=== PATIENT | male | born 1990 | race Caucasian/White ===

== ENCOUNTER → 2018-12-29 16:47 | Outpatient (CLI) | payer BC, SELFPAY ==
[2018-12-29 17:33] LABS: Absolute Lymphocyte Count 2.25 X10^3/ul (0.83-4.51); Absolute Neutrophil Count 4.4 X10^3/uL (2.0-7.7); Basophil# 0.03 X10^3/uL; Basophil% 0.4 % (0-1); Eosinophil# 0.14 X10^3/uL; Eosinophils% 1.9 % (0-5); Hematocrit 47.3 % (40-54); Hemoglobin 15.7 g/dl (13.0-16.5); Lymphocyte # 2.25 X10^3/ul (4.0); Lymphocyte % 30.9 % (19-41); Mean Corp Hgb Conc 33.2 g/gl (32-36); Mean Corpuscular Hgb 26.9 pg (27.0-32.0); Mean Corpuscular Volume 81.1 fL (80-94); Mean Platelet Vol. 11.3 fl (6.2-12.0); Monocyte# 0.42 X10^3/uL; Monocyte% 5.8 % (0-10); Neutrophil # 4.44 X10^3/uL (2.7-7.7); Neutrophil % 60.9 % (47-70); Platelet Count 218 K/mm3 (150-450); RBC Distribution Width CV 13.5 % (11.6-14.6); RBC Distribution Width SD 39.8 fl (35.1-43.9); Red Blood Count 5.83 M/mm3 (4.6-6.2); White Blood Count 7.3 K/mm3 (4.4-11.0)
[2018-12-29 17:36] LABS: POSITIVE COUNT NO; POSITIVE DIFFERENTIAL NO; POSITIVE MORPHOLOGY NO
[2018-12-29 18:31] LABS: ALB/GLOB Ratio 1.3 RATIO (0.9-2.4); AST(SGOT) 22 U/L (15-37); Alanine Aminotransfer ALT/SGPT 56 U/L (16-61); Albumin, Serum 4.4 g/dL (3.2-5.0); Alkaline Phosphatase 49 U/L (45-117); Anion Gap 8 (5-15); BUN 21 mg/dL (7-18); Calcium,Total 8.8 mg/dL (8.5-10.1); Chloride 106 mmol/L (98-107); Cholesterol 223 mg/dL (200); EST Glomerular Filtration Rate 96 mL/min (>60); Est Glom Filt Rate - Afr Amer 116 mL/min (>60); Globulin 3.5 g/dL (2.2-4.2); Glucose 91 mg/dL (74-106); High Density Lipoprotein 37 mg/dL; Protein, Total 7.9 g/dL (6.4-8.2); Sodium Level 139 mmol/L (136-145); Thyroid Stim Hormone (TSH) 0.95 uIU/mL (0.358-3.74); Triglycerides 336 mg/dL; Very Low Density Lipoprotein 67 mg/dL (5-40)
[2018-12-29 18:35] LABS: Vitamin B12 387 pg/mL (211-911); Vitamin D,25 Hydroxy 14.3 ng/mL (29.95-100.01)
== END ==
PROVIDERS: Family Provider Family Medicine; PCP Family Medicine; Referring Provider Family Medicine; Visit Provider Family Medicine
DX: R53.83 Other fatigue (principal); E66.9 Obesity, unspecified
CPT/HCPCS: 36415; 80053; 80061; 82306; 82607; 84443; 85025

== ENCOUNTER 2019-05-22 03:24 | Emergency (ER) | payer BC, SELFPAY ==
[2019-05-22 03:24] VITALS: BP 164/86; PULSE 71; RESP 16; TEMP 36.4; O2SAT 97; BMI 38.9
--- NOTE | 2019-05-22 03:28 | RAD_ITS ---
HISTORY: Injury. EXAMINATION/TECHNIQUE: XR Ribs Unilateral W/ PA Chest Min 3 Views: Right. COMPARISON: None FINDINGS: LINES/DEVICES: None. LUNGS: No consolidation, edema or effusion. No pneumothorax. MEDIASTINUM AND CARDIOVASCULAR STRUCTURES: Cardiac silhouette not enlarged. Central airways and mediastinal contour are unremarkable. RIBS AND OSSEOUS STRUCTURES: Unremarkable. No evidence of displaced rib fractures. RAD/Ribs Uni Min 3V w/PA Chest IMPRESSION: Negative chest and ribs series. at 0431 Reported and signed by: Mitchell Hamm MD Electronically Signed: Mitchell Hamm, at 4:30 EDT Tel , Service support ,
--- NOTE | 2019-05-22 03:29 | ED.VIS.GEN ---
History of Present Illness Chief Complaint: Chest Other Informant: Patient Onset: Weeks - 1 Narrative: Evaluation of rib injury occurring a week ago. Playing basketball came down onto his shoulder. Pain anterior front ribs. No dyspnea. No medications taken. See pain is worsening with no new injuries. Denies any allergies, no history of gastric ulcers or kidney injury. Came for imaging. Prior similar symptoms: No Past Medical History - Allergies and Home Meds Allergies/Adverse Reactions: Allergies No Known Allergies Allergy (Verified 05/22/19 03:24) Primary Care Physician: Sukhjinder Lewis MD [Primary Care Provider] - Smoking Status: Never smoker Review of Systems General: Denies: Chills, Fever, Sweats Eyes: Denies: Visual changes - bilaterally, Diplopia ENT: Denies: Rhinorrhea, Sore throat Cardiovascular: Reports: - - Rib pain. Denies: Chest pain, Palpitations Respiratory: Denies: Dyspnea, Cough, Dyspnea on exertion Gastrointestinal: Denies: Abdominal pain, Nausea, Vomiting, Diarrhea, Melena, Hematochezia Genitourinary: Denies: Dysuria, Hematuria, Frequency Musculoskeletal: Denies: Back pain, Extremity Pain Skin: Denies: Rash, Wounds Neurological: Denies: Headache, Weakness, Numbness Physical Exam Vital Signs/Narrative: Vital Signs Temp Pulse Resp BP Pulse Ox 05/22/19 03:24 97.5 F L 71 16 164/86 H 97 Inital Vital Signs reviewed: Yes General: Well nourished, Well developed, No Acute Distress Head: Normocephalic, Atraumatic Eyes: Perrl, EOMI ENT: Moist mucous membranes, No rhinorrhea Neck: Supple, Nontender Cardiovascular: Regular rate, Regular rhythm, No murmurs Respiratory: No distress, CTA bilaterally, Chest tenderness, - - Symmetric breath sounds. Tender palpation anterior lower ribs with no crepitus or ecchymosis. Minimal lateral midline rib pain. No posterior pain. Abdomen: Soft, Nontender, Nondistended, Normal bowel sounds Back: Nontender, Normal Inspection Extremities: Nontender, No edema Skin: Normal color, No rash Neurological: Alert, Oriented x3, Cranial nerves II-XII grossly intact, Normal Strength, Normal Sensation Psychological: Normal affect, Normal Mood Diagnostic/Tx/Re-eval Clinical Impression(s) from Imaging Studies Ribs w/Chest X-Ray 05/22/19 03:28 IMPRESSION: Negative chest and ribs series. at 0431 Reported and signed by: Mitchell Hamm MD Electronically Signed: Mitchell Hamm, at 4:30 EDT Tel , Service support , - Medical Decision Making Vital signs stable, symmetric breath sounds. Patient agreed with ibuprofen, rib series obtained with no acute process. Discussed chest wall contusion with symptomatic treatment. Following up as an outpatient. All questions were answered. ED Disposition - Plan for ED Patient: Disposition: Home or Assisted Living Diagnosis: Chest wall contusion Instructions: Chest Wall Contusion Referrals: Sukhjinder Lewis MD [Primary Care Provider] - 5-7 Days Additional Instructions: Right rib series and chest were negative. Use ibuprofen 600 mg every 6 hours as needed for symptom control.
[2019-05-22] MEDS: Ibuprofen 600 MG Tablet PO (03:41)
[2019-05-22 04:49] VITALS: RESP 14
== END 2019-05-22 04:53 | disposition home or self-care (01) ==
PROVIDERS: Emergency Provider Emergency Medicine; Family Provider Family Medicine; PCP Family Medicine
DX: S20.211A Contusion of right front wall of thorax, initial encounter (principal); W19.XXXA Unspecified fall, initial encounter; Y93.67 Activity, basketball; Y92.9 Unspecified place or not applicable; Y99.9 Unspecified external cause status
CPT/HCPCS: 71101; 99283

== ENCOUNTER → 2019-10-20 10:41 | Outpatient (CLI) | payer BC, SELFPAY ==
[2019-10-20 12:26] LABS: Erythrocyte Sedimentation Rate 6 mm/hr (0-15)
[2019-10-20 12:28] LABS: Absolute Neutrophil Count 3.6 X10^3/uL (2.0-7.7); Basophil# 0.05 X10^3/uL; Basophil% 0.8 % (0-1); Eosinophil# 0.16 X10^3/uL; Eosinophils% 2.7 % (0-5); Hemoglobin 15.7 g/dL (13.0-16.5); Mean Corp Hgb Conc 34.1 g/dL (32-36); Mean Corpuscular Hgb 27.6 pg (27.0-32.0); Mean Corpuscular Volume 80.8 fL (80-94); Monocyte# 0.52 X10^3/uL; Monocyte% 8.8 % (0-10); NRBC Flagged by Analyzer 0 % (0-5); Neutrophil # 3.57 X10^3/uL (2.7-7.7); Neutrophil % 60.2 % (47-70); Platelet Count 211 K/mm3 (150-450); RBC Distribution Width CV 12.8 % (11.6-14.6); RBC Distribution Width SD 36.7 fl (35.1-43.9); Red Blood Count 5.69 M/mm3 (4.6-6.2); White Blood Count 5.9 K/mm3 (4.4-11.0)
[2019-10-20 13:18] LABS: ALB/GLOB Ratio 1.2 RATIO (0.9-2.4); AST(SGOT) 22 U/L (15-37); Alanine Aminotransfer ALT/SGPT 60 U/L (16-61); Albumin, Serum 4.2 g/dL (3.2-5.0); Alkaline Phosphatase 50 U/L (45-117); Anion Gap 5 (5-15); BUN 15 mg/dL (7-18); Chloride 108 mmol/L (98-107); Creatinine, Serum 1.15 mg/dL (0.70-1.30); EST Glomerular Filtration Rate 81 mL/min (>60); Est Glom Filt Rate - Afr Amer 98 mL/min (>60); Globulin 3.5 g/dL (2.2-4.2); Glucose 99 mg/dL (74-106); Potassium 3.9 mmol/L (3.5-5.1); Protein, Total 7.7 g/dL (6.4-8.2); Rheumatoid Factor < 10.0 IU/mL (<15); Sodium Level 141 mmol/L (136-145)
[2019-10-21 13:34] LABS: ANTINUCLEAR ANTIBODIES DIRECT Negative (Negative)
== END ==
PROVIDERS: Family Provider Family Medicine; PCP Family Medicine; Visit Provider Nurse Practitioner Family
DX: M79.10 Myalgia, unspecified site (principal); E55.9 Vitamin D deficiency, unspecified
CPT/HCPCS: 36415; 80053; 82306; 85025; 85652; 86038; 86141; 86431

== ENCOUNTER → 2020-05-04 12:03 | Outpatient (CLI) | payer BC, SELFPAY ==
[2020-01-03 12:41] VITALS: BMI 38.9
[2020-05-04 15:55] LABS: ALB/GLOB Ratio 1.1 RATIO (0.9-2.4); AST(SGOT) 25 U/L (15-37); Alanine Aminotransfer ALT/SGPT 64 U/L (16-61); Albumin, Serum 4.1 g/dL (3.2-5.0); Alkaline Phosphatase 51 U/L (45-117); Anion Gap 5 (5-15); BUN 19 mg/dL (7-18); BUN/Creat Ratio 17.1 RATIO (10-20); Calcium,Total 9.2 mg/dL (8.5-10.1); Chloride 107 mmol/L (98-107); Creatinine, Serum 1.11 mg/dL (0.70-1.30); EST Glomerular Filtration Rate 84 mL/min (>60); Est Glom Filt Rate - Afr Amer 102 mL/min (>60); Globulin 3.9 g/dL (2.2-4.2); Glucose 106 mg/dL (74-106); Sodium Level 139 mmol/L (136-145)
[2020-05-07 20:05] LABS: Endomysial Antibody IgA Negative (Negative)
[2020-05-08 00:40] LABS: Immunoglobulin A 95 mg/dL (90-386); t-Transglutaminase IgA <2 U/mL (0-3)
[2020-05-09 20:07] LABS: Beef <0.10 kU/L (Class 0); Corn <0.10 kU/L (Class 0); Egg, Whole 0.46 kU/L (Class I); Milk (Cow) 0.79 kU/L (Class II); Peanut <0.10 kU/L (Class 0); Pork <0.10 kU/L (Class 0); Soybean <0.10 kU/L (Class 0); Wheat 0.72 kU/L (Class II)
[2020-05-10 01:51] LABS: Chocolate <0.10 kU/L (Class 0)
== END ==
PROVIDERS: PCP Family Medicine; Referring Provider Family Medicine; Visit Provider Family Medicine
DX: R19.7 Diarrhea, unspecified (principal)
CPT/HCPCS: 36415; 80053; 82784; 83516; 86003; 86005; 86255

== ENCOUNTER → 2020-05-09 09:32 | Outpatient (CLI) | payer BC, SELFPAY ==
[2020-01-03 12:41] VITALS: BMI 38.9
--- NOTE | 2020-05-09 09:45 | RAD_ITS ---
STUDY: X-RAY - ESOPHAGUS (BARIUM SWALLOW) WITH FLUOROSCOPY REASON FOR EXAM: Male, 29 years old. DYSPHAGIA, BURPING AND PUKING X1 YR, FEELS LIKE THINGS GET STUCK TIME TO TIME. NAUSEA -- 40 FLUORO SEC, 18.78mGy, 22 FLUORO IMAGES TECHNIQUE: 22 view(s) of the esophagus were obtained following swallowing of barium. FLUOROSCOPY TIME (if supplied): (0:40) minutes/seconds COMPARISON: None. FINDINGS: There is no demonstrated esophageal foreign body. There is no demonstrated stricture or mucosal abnormality. Normal gastroesophageal junction, without a demonstrated hiatal hernia. The patient ingested a 12 mm tablet of barium without any difficulty. Normal visualized aortic arch and descending thoracic aorta. Normal visualized pulmonary parenchyma. Normal visualized osseous structures of the thorax. RAD/Esophagus Dual Contrast IMPRESSION: Normal plain film x-ray examination (barium swallow) of the esophagus. Electronically Signed: Paul Jacobs, at 10:33 EDT , Service support ,
== END ==
PROVIDERS: PCP Family Medicine; Referring Provider Family Medicine; Visit Provider Family Medicine
DX: R13.10 Dysphagia, unspecified (principal)
CPT/HCPCS: 74221

== ENCOUNTER 2020-06-04 09:34 | Day surgery (SDC) | payer BC, SELFPAY ==
[2020-05-22 08:53] VITALS: BMI 38.9
--- NOTE | 2020-05-22 09:06 | HP_ITS ---
Intake Vital Signs 05/22/20 BMI 38.9 05/22/20 Height 6 ft 6 in 05/22/20 Weight: 344 lb 05/22/20 BMI 39.7 05/22/20 BP 146/80 H 05/22/20 Blood Pressure Location Rt brachial 05/22/20 Position Sitting 05/22/20 Respiration 18 05/22/20 Pulse 71 05/22/20 Pulse Source Monitor 05/22/20 Temp 97.4 F L 05/22/20 Temp Source Temporal 05/22/20 Pulse Oximetry (%) 96 05/22/20 Oxygen Delivery Method room air Intake Visit Reasons: CSCOPE Chief Complaint: epigastric pain/EGD/C-scope Wax Blender Required: No Is patient in pain?: Yes Allergies No Known Allergies Allergy (Verified 05/22/20 08:51) Medications cholecalciferol (vitamin D3) 100 mcg (4,000 unit) capsule 2,000 unit PO DAILY cap 05/22/20 [History] omeprazole 40 mg capsule,delayed release 40 mg PO DAILY 05/22/20 [History Confirmed 05/22/20] [facility] Medical History Difficulty swallowing (Acute) Epigastric pain (Acute) History of change in bowel patterns (Acute) Bloody stools (Acute) Chest pain (Acute) Fatigue (Acute) Heart disease (Acute) Knee pain (Acute) Meniscus Repair (Acute) NECK AND BACK PAIN (Acute) Severe headache (Acute) Shortness of breath (Acute) Shoulder pain (Acute) Surgical History History of tonsillectomy (Acute) History of repair of ACL (Acute) History of wisdom tooth extraction (Acute) S/P MCL repair (Acute) Family History Mother Diabetes Hypertension Grandmother Heart disease Father Heart disease Social History (Updated 05/22/20 @ 09:[address] Connor Garcia MD) Smoking Status: Never smoker alcohol intake: current substance use type: does not use HPI HPI Surgical H&P: Yes HPI: LUIS ANTONIO POLLOCK, is a 29 M who presents to the office today for Evaluation for epigastric abdominal pain and diarrhea.Patient over the last several months has been having increased bowel movements up to 4 times a day mostly diarrhea. He is also noticed some lower abdominal bloating. The patient also has been experiencing epigastric and chest pain it is similar to what he experienced when he was in college at [employer] playing football he was sent to [place] for evaluation and was subsequently treated with what sounds like metoprolol he said that did help. Patient has been worked up for triggers for his diarrhea. He has positive testing with eggs wheat and dairy. Finally the patient was started on a proton pump inhibitor about 2 weeks ago unsure if this really has been effective in treating any of his symptoms. Patient has had a barium swallow completed at [facility] on 05/09/2020. This showed normal esophagus no strictures or mucosal abnormalities. And did not show any signs of ulcer or mass lesions within the esophagus itself. ROS General General: Yes weight change; no appetite, fatigue, colon cancer, breast cancer or weakness HEENT HEENT: Yes difficulty swallowing; no eye injury, eye surgery, swollen glands or hoarseness Endo Endocrine: No thyroid disease, diabetes mellitus, thyroid cancer, Hair loss, heat intolerance or cold intolerance Skin Skin: Yes rash; no changing moles Breast Breast: No left breast lump, right breast lump, nipple discharge, breast pain, abnormal mammogram, abnormal US or breast enlargement Musc Musculoskeletal: No back problems, arthritis, rheumatoid arthritis, gout or joint pain Cardio Cardiovascular: No murmur, pacemaker, heart disease, atrial fibrillation, high blood pressure, heart attack, heart stent, palpitations, shortness of breat with exertion or chest pain Psych Psychiatric: No depression, anxiety or hearing voices Resp Respiratory: Yes shortness of breath, No sleep apnea, No cough, No COPD, No asthma, No emphysema, No wheezing Gastro Gastrointestinal: No abdominal pain, Yes nausea or vomiting, Yes diarrhea, No constipation, No blood in stool, No acid reflux, No hemorrhoids, No ulcers, No gallbladder problem, No black,tarry stools Additional Details: epigastric pain Robb Hematologic: No blood thinners, No blood disorders, No bleeding, No anemia, No blood clots Neuro Neurologic: No system reviewed and no additional complaints, except as docu, No as per HPI, No abnormal walking, No abnormal hearing, No abnormal movements, No abnormal speech, No behavioral changes, No burning sensations, No confusion, No seizure-like activity, No unsteadiness, No dizziness, No localized weakness, No frequent falls, No headache(s), No lack of coordination, No loss of vision, No memory loss, No numbness, No other visual disturbances, No radiating pain, No restless legs, No sensory deficit, No fainting, No tingling, No tremor(s), No weakness, No other Exam Const General: no acute distress, well developed, well hydrated Orientation: oriented to person, oriented to place, oriented to time [facility] Head: normocephalic, atraumatic Ears: external ears normal Mouth: moist mucous membranes Eyes Sclera: sclerae normal Pupils: normal by confrontation Neck Neck: no lymphadenopathy noted Neck mass: No Thyroid: thyroid normal, symmetrical Chest Chest palpation & inspection: normal inspection of the chest Breast Palpation: No nipple discharge Resp Effort & Inspection: normal respiratory effort Auscultation: clear to auscultation bilaterally Percussion: percussion normal Cardio Rate: regular rate Rhythm: regular rhythm Heart Sounds: no murmurs GI Palpation: soft, no hepatosplenomegaly, no masses, nontender Rectal Exam: other Other: Rectal exam deferred. Extrem General: normal to inspection, no clubbing, cyanosis or edema Assessment & Plan Problems 1. Diarrhea, unspecified type R19.7 2. Epigastric pain R10.13 3. Chest pain, unspecified type R07.9 Plan I have discussed the above with the patient. I have offered the patient colonoscopy for evaluation. I have explained the risks/benefits of the procedure and described the procedure. I have discussed the risks with the patient, including but not limited to: infection, bleeding, perforation of the GI tract requiring emergency surgery, inability to complete the procedure, injury to any internal organs, complications of anesthesia, etc. - the patient understands and agrees to proceed. I have answered all the patient's questions to the patient's satisfaction and the patient has no further questions. The patient has been given instructions for the colon cleansing preparation. We will be doing random colon biopsies. In addition the patient will be undergoing esophageal manometry studies. If these are negative then he is going to have to get back to have another cardiology consult with director of cardiology and Mekhi. I do not have the results from his director of cardiology evaluation that was completed in [place]. Coding Level of Care Code Off vis,new,level 3 Diagnoses Diarrhea, unspecified type R19.7 ??Diarrhea type: unspecified type Epigastric pain R10.13 Chest pain, unspecified type R07.9 ??Chest pain type: unspecified COVID (Procedure Consent) Procedure Criteria Procedure Criteria: Yes Elective The surgeon/proceduralist and patient have discussed in detail the risk of exposure to and/or potential harm posed by the COVID-19 virus with having a surgery/procedure at this time versus the risk of? delaying the surgery/procedure. It is not possible to know either the risk of delaying the surgery or procedure or chance of getting an infection with perfect accuracy, but a joint decision was made between the patient and the surgeon/proceduralist ?to proceed at this time with the scheduled surgery/procedure as indicated on the consent form. 05/22/20 0906 <Electronically signed by Connor martinez MD> Date _ Connor Garcia MD I have re-examined the patient. There are no clinical changes since date of exam.
[2020-06-04] VITALS (7 sets, daily range): BP systolic 116–150; BP diastolic 62–85; PULSE 68–89; RESP 16; TEMP 36.1–36.3; O2SAT 92–97; BMI 38.5
[2020-06-04] MEDS: Lactated Ringers 1,000 ML 100 ML IV (10:37)
--- NOTE | 2020-06-04 11:00 | OP.COLON_ITS ---
Patient Name: Jose Fischer Procedure Date: 06/04/2020 10:33 AM Date of : 1990 Age: 29 Procedure: Colonoscopy Indications: Clinically significant diarrhea of unexplained origin Providers: Connor Garcia MD Referring MD: Sukhjinder Lewis Medicines: See the Anesthesia note for documentation of the administered medications Patient Profile: This is a 29 year old male. Refer to note in patient chart for documentation of history and physical. Last Colonoscopy: none. The patient's first colonoscopy is today. Complications: No immediate complications. Procedure: Pre-Anesthesia Assessment: - Prior to the procedure, a History and Physical was performed, and patient medications and allergies were reviewed. The patient's tolerance of previous anesthesia was also reviewed. The risks and benefits of the procedure and the sedation options and risks were discussed with the patient. All questions were answered, and informed consent was obtained. Prior Anticoagulants: The patient has taken no previous anticoagulant or antiplatelet agents. ASA Grade Assessment: II - A patient with mild systemic disease. After reviewing the risks and benefits, the patient was deemed in satisfactory condition to undergo the procedure. After I obtained informed consent, the scope was passed under direct vision. Throughout the procedure, the patient's blood pressure, pulse, and oxygen saturations were monitored continuously. The adult colonoscope was introduced through the anus and advanced to the cecum, identified by appendiceal orifice and ileocecal valve. The colonoscopy was performed without difficulty. The patient tolerated the procedure well. The quality of the bowel preparation was good. Scope In: 10:43:38 AM Scope Withdrawal Time 0 hours 6 minutes 2 seconds Scope Out: 10:55:42 AM Total Procedure Duration Time 0 hours 12 minutes 4 seconds Findings: The colon (entire examined portion) appeared normal. Biopsies for histology were taken with a cold forceps from the entire colon for evaluation of microscopic colitis. Non-bleeding internal hemorrhoids were found during retroflexion. The hemorrhoids were mild and small. No biopsies or other specimens were collected for this exam. The exam was otherwise without abnormality. Impression: - The entire examined colon is normal. Biopsied. - Non-bleeding internal hemorrhoids. No specimens collected. - The examination was otherwise normal. Recommendation: - Discharge patient to home. - Resume previous diet. - Continue present medications. - Await pathology results. - Repeat colonoscopy at age 52 for screening purposes. - Return to my office in 1 week. Procedure Code(s): --- Professional --- 14767, Colonoscopy, flexible; with biopsy, single or multiple Diagnosis Code(s): --- Professional --- K64.8, Other hemorrhoids R19.7, Diarrhea, unspecified CPT copyright 2017 [employer]. All rights reserved. The codes documented in this report are preliminary and upon wire drawing machine operator review may be revised to meet current compliance requirements. MD Connor Starks MD 06/04/2020 10:59:44 AM This report has been signed electronically. Number of Addenda: 0 Note Initiated On: 06/04/2020 10:33 AM
--- NOTE | 2020-06-04 11:00 | COLBX_PTH ---
PATIENT: LUIS ANTONIO POLLOCK LOC: EN U#:[id number] AGE/SX: 29/M ROOM: RE06/04/[address]: Dr. Connor Garcia MD : 1990 BED: DIS: 06/04/2020 SPEC #: [id number] RECD: 06/04/20 12:02 STATUS: [facility] [place] #: [id number] SUMI: 06/04/20 11:[address]: Connor Garcia DEPT: SURGICAL PATHOLOGY RECD BY: Jakub Farnsworth ENTERED: 06/04/20 12:18 SP TYPE: COLON BX OTHR DR: Dr. Sukhjinder Lewis MD Tissues: COLON BIOPSY Procedures: Surgery Specimen Level IV HEADER OPERATION: Colonoscopy (MAC) PRE-OP DIAGNOSIS: Diarrhea and epigastric pain TISSUE SUBMITTED: Random colon biopsies MICROSCOPIC DIAGNOSIS Colon, random biopsy: No pathologic change. AM:nate 06/05/20 MICROSCOPIC DESCRIPTION Slides are reviewed. GROSS DESCRIPTION Received in fixative is one container labeled with the patient's name and designated random colon biopsy. The specimen consists of multiple irregular fragments of light caal soft tissue that in aggregate measure 2.5 x 1 x 0.1 cm. The specimen is totally submitted in one cassette. / SJ:nate 06/04/20 TC:5 CPT: 22105
--- NOTE | 2020-06-04 11:00 | OP.CCLET_ITS ---
06/04/2020 Sukhjinder Lewis [address] [place] [address] Re : Colonoscopy procedure for Jose Fischer Dear Dr. Lewis This procedure was performed on Thursday, June 04, 2020. My impressions and recommendations are as follows: Impressions : - The entire examined colon is normal. Biopsied. - Non-bleeding internal hemorrhoids. No specimens collected. - The examination was otherwise normal. Recommendations : - Discharge patient to home. - Resume previous diet. - Continue present medications. - Await pathology results. - Repeat colonoscopy at age 52 for screening purposes. - Return to my office in 1 week. My findings are described in the full procedure note, which is enclosed. If I can be of further assistance, please feel free to contact me at Doctor phone number(s): , Fax: [phone], Work: . Sincerely, MD Connor Starks MD 06/04/2020 10:59:44 AM This report has been signed electronically.
== END 2020-06-04 11:43 | disposition home or self-care (01) ==
LOC: EN 09:36 → AC 09:37
PROVIDERS: Anesthesiology; PCP Family Medicine; Referring Provider Family Medicine; Visit Provider Surgery
PROC: 0DJD8ZZ Inspection of Lower Intestinal Tract, Via Natural or Artificial Opening Endoscopic (ICD-10-PCS; CPT 45378; principal; 2020-06-04 10:55)
DX: R19.7 Diarrhea, unspecified (principal); K64.8 Other hemorrhoids; R10.13 Epigastric pain; R07.9 Chest pain, unspecified; R13.10 Dysphagia, unspecified; Z79.899 Other long term (current) drug therapy
CPT/HCPCS: 45380; 87635; 88305; 94799; J7120; J2405; U0003

== ENCOUNTER 2020-06-07 07:34 | Day surgery (SDC) | payer BC, SELFPAY ==
[2020-05-22 08:53] VITALS: BMI 38.9
--- NOTE | 2020-05-22 09:06 | HP_ITS ---
Intake Vital Signs 05/22/20 BMI 38.9 05/22/20 Height 6 ft 6 in 05/22/20 Weight: 344 lb 05/22/20 BMI 39.7 05/22/20 BP 146/80 H 05/22/20 Blood Pressure Location Rt brachial 05/22/20 Position Sitting 05/22/20 Respiration 18 05/22/20 Pulse 71 05/22/20 Pulse Source Monitor 05/22/20 Temp 97.4 F L 05/22/20 Temp Source Temporal 05/22/20 Pulse Oximetry (%) 96 05/22/20 Oxygen Delivery Method room air Intake Visit Reasons: CSCOPE Chief Complaint: epigastric pain/EGD/C-scope Business Test Analyst Required: No Is patient in pain?: Yes Allergies No Known Allergies Allergy (Verified 05/22/20 08:51) Medications cholecalciferol (vitamin D3) 100 mcg (4,000 unit) capsule 2,000 unit PO DAILY cap 05/22/20 [History] omeprazole 40 mg capsule,delayed release 40 mg PO DAILY 05/22/20 [History Confirmed 05/22/20] [facility] Medical History Difficulty swallowing (Acute) Epigastric pain (Acute) History of change in bowel patterns (Acute) Bloody stools (Acute) Chest pain (Acute) Fatigue (Acute) Heart disease (Acute) Knee pain (Acute) Meniscus Repair (Acute) NECK AND BACK PAIN (Acute) Severe headache (Acute) Shortness of breath (Acute) Shoulder pain (Acute) Surgical History History of tonsillectomy (Acute) History of repair of ACL (Acute) History of wisdom tooth extraction (Acute) S/P MCL repair (Acute) Family History Mother Diabetes Hypertension Grandmother Heart disease Father Heart disease Social History (Updated 05/22/20 @ 09:[address] Connor Garcia MD) Smoking Status: Never smoker alcohol intake: current substance use type: does not use HPI HPI HPI: LUIS ANTONIO POLLOCK, is a 29 M who presents to the office today for HPI HPI Surgical H&P: Yes HPI: LUIS ANTONIO POLLOCK, is a 29 M who presents to the office today for Evaluation for epigastric abdominal pain and diarrhea.Patient over the last several months has been having increased bowel movements up to 4 times a day mostly diarrhea. He is also noticed some lower abdominal bloating. The patient also has been experiencing epigastric and chest pain it is similar to what he experienced when he was in college at [employer] playing football he was sent to [place] for evaluation and was subsequently treated with what sounds like metoprolol he said that did help. Patient has been worked up for triggers for his diarrhea. He has positive testing with eggs wheat and dairy. Finally the patient was started on a proton pump inhibitor about 2 weeks ago unsure if this really has been effective in treating any of his symptoms. Patient has had a barium swallow completed at [facility] on 05/09/2020. This showed normal esophagus no strictures or mucosal abnormalities. And did not show any signs of ulcer or mass lesions within the esophagus itself. ROS General General: Yes weight change; no appetite, fatigue, colon cancer, breast cancer or weakness HEENT HEENT: Yes difficulty swallowing; no eye injury, eye surgery, swollen glands or hoarseness Endo Endocrine: No thyroid disease, diabetes mellitus, thyroid cancer, Hair loss, heat intolerance or cold intolerance Skin Skin: Yes rash; no changing moles Breast Breast: No left breast lump, right breast lump, nipple discharge, breast pain, abnormal mammogram, abnormal US or breast enlargement Musc Musculoskeletal: No back problems, arthritis, rheumatoid arthritis, gout or joint pain Cardio Cardiovascular: No murmur, pacemaker, heart disease, atrial fibrillation, high blood pressure, heart attack, heart stent, palpitations, shortness of breat with exertion or chest pain Psych Psychiatric: No depression, anxiety or hearing voices Resp Respiratory: Yes shortness of breath, No sleep apnea, No cough, No COPD, No asthma, No emphysema, No wheezing Gastro Gastrointestinal: No abdominal pain, Yes nausea or vomiting, Yes diarrhea, No constipation, No blood in stool, No acid reflux, No hemorrhoids, No ulcers, No gallbladder problem, No black,tarry stools Additional Details: epigastric pain Robb Hematologic: No blood thinners, No blood disorders, No bleeding, No anemia, No blood clots Neuro Neurologic: No system reviewed and no additional complaints, except as docu, No as per HPI, No abnormal walking, No abnormal hearing, No abnormal movements, No abnormal speech, No behavioral changes, No burning sensations, No confusion, No seizure-like activity, No unsteadiness, No dizziness, No localized weakness, No frequent falls, No headache(s), No lack of coordination, No loss of vision, No memory loss, No numbness, No other visual disturbances, No radiating pain, No restless legs, No sensory deficit, No fainting, No tingling, No tremor(s), No weakness, No other Exam Const General: no acute distress, well developed, well hydrated Orientation: oriented to person, oriented to place, oriented to time [facility] Head: normocephalic, atraumatic Ears: external ears normal Mouth: moist mucous membranes Eyes Sclera: sclerae normal Pupils: normal by confrontation Neck Neck: no lymphadenopathy noted Neck mass: No Thyroid: thyroid normal, symmetrical Chest Chest palpation & inspection: normal inspection of the chest Breast Palpation: No nipple discharge Resp Effort & Inspection: normal respiratory effort Auscultation: clear to auscultation bilaterally Percussion: percussion normal Cardio Rate: regular rate Rhythm: regular rhythm Heart Sounds: no murmurs GI Palpation: soft, no hepatosplenomegaly, no masses, nontender Rectal Exam: other Other: Rectal exam deferred. Extrem General: normal to inspection, no clubbing, cyanosis or edema Assessment & Plan Problems 1. Diarrhea, unspecified type R19.7 2. Epigastric pain R10.13 3. Chest pain, unspecified type R07.9 Plan I have discussed the above with the patient. I have offered the patient colonoscopy for evaluation. I have explained the risks/benefits of the procedure and described the procedure. I have discussed the risks with the patient, including but not limited to: infection, bleeding, perforation of the GI tract requiring emergency surgery, inability to complete the procedure, injury to any internal organs, complications of anesthesia, etc. - the patient understands and agrees to proceed. I have answered all the patient's questions to the patient's satisfaction and the patient has no further questions. The patient has been given instructions for the colon cleansing preparation. We will be doing random colon biopsies. In addition the patient will be undergoing esophageal manometry studies. If these are negative then he is going to have to get back to have another cardiology consult with cryptographer and Mekhi. I do not have the results from his cryptographer evaluation that was completed in [place]. Coding Level of Care Code Off vis,new,level 3 Diagnoses Diarrhea, unspecified type R19.7 ??Diarrhea type: unspecified type Epigastric pain R10.13 Chest pain, unspecified type R07.9 ??Chest pain type: unspecified COVID (Procedure Consent) Procedure Criteria Procedure Criteria: Yes Elective The surgeon/proceduralist and patient have discussed in detail the risk of exposure to and/or potential harm posed by the COVID-19 virus with having a surgery/procedure at this time versus the risk of? delaying the surgery/procedure. It is not possible to know either the risk of delaying the surgery or procedure or chance of getting an infection with perfect accuracy, but a joint decision was made between the patient and the surgeon/proceduralist ?to proceed at this time with the scheduled surgery/procedure as indicated on the consent form. 05/22/20 0906 <Electronically signed by Connor martinez MD> Date _ Connor Garcia MD
[2020-06-04 10:20] VITALS: BMI 38.5
[2020-06-07 08:11] VITALS: BP 142/82; PULSE 82; RESP 16; TEMP 36.2; O2SAT 99
[2020-06-07] MEDS: Lidocaine Jelly 2% 20 ML Syringe (URO-JET) 20 APPLIC (08:12)
== END 2020-06-07 08:11 | disposition home or self-care (01) ==
PROVIDERS: PCP Family Medicine; Referring Provider Family Medicine; Visit Provider Surgery
PROC: F00ZJWZ Instrumental Swallowing and Oral Function Assessment using Swallowing Equipment (ICD-10-PCS; CPT 43235; principal; 2020-06-07 07:25)
DX: R10.13 Epigastric pain (principal); R07.9 Chest pain, unspecified; R13.10 Dysphagia, unspecified; K92.1 Melena; R14.0 Abdominal distension (gaseous); R19.7 Diarrhea, unspecified
CPT/HCPCS: 91010; 91013

== ENCOUNTER → 2020-06-26 10:33 | Outpatient (CLI) | payer BC, SELFPAY ==
[2020-06-20 13:23] VITALS: BMI 38.5
--- NOTE | 2020-06-26 10:33 | ECHOD_ITS ---
Reason For Study: CP Procedure This was a 2D Doppler, Color Flow transthoracic echocardiogram. Exam performed in department. Left Ventricle Normal LV size. Left ventricular systolic function is normal. The estimated ejection fraction is 55 %. Normal diastology for age. No regional wall motion abnormalities noted. Right Ventricle Normal RV size. Normal systolic function. Atria Normal left atrium. Normal right atrium. Mitral Valve Normal mitral valve. Tricuspid Valve Normal tricuspid valve. Aortic Valve The aortic valve is not well visualized. Pulmonic Valve Normal pulmonic valve. Great Vessels Normal aortic root. The pulmonary artery is normal size. Normal inferior vena cava. Pericardium/Pleural No pericardial effusion. MMode/2D Measurements & Calculations LVIDd: 5.5 cm IVSd: 1.2 cm Ao root diam: 3.1 cm LVIDs: 3.5 cm LVPWd: 0.94 cm LA dimension: 4.7 cm RVDd: 4.8 cm FS: 36.4 % LAV(MOD-bp): 57.8 ml LA A4 area: 21.3 cm2 RA A4 area: 21.4 cm2 LAV(MOD-bp) Indexed: 20.7 ml/m2 LAV(MOD-sp2): 50.1 ml LAV(MOD-sp4): 60.3 ml Time Measurements MV dec time: 0.18 sec Doppler Measurements & Calculations MV E max domingo: 91.7 cm/sec Lat Peak E' Domingo: 19.1 cm/sec Med Peak E' Domingo: 13.9 cm/sec MV A max domingo: 54.0 cm/sec E/E' lat: 4.8 E/E' med: 6.6 MV E/A: 1.7 MV V2 max: 99.7 cm/sec MV P1/2t max domingo: 99.0 cm/sec Ao V2 max: 141.5 cm/sec MV max P.0 mmHg MV P1/2t: 110.9 msec Ao max P.0 mmHg MV V2 mean: 48.0 cm/sec MV dec slope: 261.6 cm/sec2 MV mean P.2 mmHg MVA(P1/2t): 2.0 cm2 MV V2 VTI: 33.5 cm LV V1 max: 112.3 cm/sec PA V2 max: 137.7 cm/sec LV V1 max P.0 mmHg Interpretation Summary Normal LV size. Left ventricular systolic function is normal. The estimated ejection fraction is 55 %. Structurally normal valves. Ordering Physician: Arash Gurrola Referring Physician: Sukhjinder Lewis Performed By: Eriberto Miguel RCS
--- NOTE | 2020-06-26 18:22 | STRESSREP_ITS ---
Stress Test Report Exercise stress test. 29-year-old male with a history of chest pain. Stress protocol: Resting EKG demonstrates normal sinus rhythm with a rate of 65 bpm normal intervals are noted resting blood pressure is 108/72 mmHg. The patient exercised according to regular David protocol for total duration of 10 minutes and 30 seconds. The maximum heart rate attained was 173 bpm which was 89% of maximum predicted heart rate the maximum workload was 12.8 metabolic equivalents. The test was terminated due to the target heart rate being achieve d. At rest there were no ST or T wave changes noted suggest ischemia at peak exercise upsloping ST changes were noted with no meet the criteria for ischemia. During recovery there was T wave inversions noted in lead III noted. The patient did experience some mild heartburn at peak exercise. The clinical significance of this is unknown. Conclusion: Exercise stress test with no definitive EKG criteria for ischemia at a high workload. No arrhythmias noted. Good functional aerobic capacity. Atypical chest pain of unknown significance.
== END ==
PROVIDERS: PCP Family Medicine; Referring Provider Internal Medicine Cardiovascular Disease; Visit Provider Internal Medicine Cardiovascular Disease
DX: R07.9 Chest pain, unspecified (principal)
CPT/HCPCS: 93017; 93306

== ENCOUNTER → 2020-09-10 15:47 | Outpatient (CLI) | payer BC, SELFPAY ==
[2020-06-20 13:23] VITALS: BMI 38.5
[2020-09-10 19:02] LABS: ALB/GLOB Ratio 1.2 RATIO (0.9-2.4); AST(SGOT) 27 U/L (15-37); Alanine Aminotransfer ALT/SGPT 57 U/L (16-61); Albumin, Serum 4.2 g/dL (3.2-5.0); Alkaline Phosphatase 54 U/L (45-117); Anion Gap 6 (5-15); BUN 15 mg/dL (7-18); BUN/Creat Ratio 13.8 RATIO (10-20); Calcium,Total 8.8 mg/dL (8.5-10.1); Chloride 107 mmol/L (98-107); Creatinine, Serum 1.09 mg/dL (0.70-1.30); EST Glomerular Filtration Rate 86 mL/min (>60); Est Glom Filt Rate - Afr Amer 104 mL/min (>60); Globulin 3.6 g/dL (2.2-4.2); Glucose 95 mg/dL (74-106); Potassium 3.9 mmol/L (3.5-5.1); Protein, Total 7.8 g/dL (6.4-8.2); Sodium Level 140 mmol/L (136-145); Thyroid Stim Hormone (TSH) 0.67 uIU/mL (0.358-3.74)
== END ==
PROVIDERS: Family Medicine; PCP Family Medicine; Visit Provider Family Medicine
DX: R00.2 Palpitations (principal)
CPT/HCPCS: 36415; 80053; 84443